=== PATIENT | female | born 1990 | race Caucasian/White ===

== ENCOUNTER 2023-01-09 12:12 | Outpatient (CLI) | payer MEDICAID ==
[2023-01-09 14:41] LABS: BASOPHILS % (AUTO) 0.6 %; EOSINOPHILS # (AUTO) 0.3 10^3/uL (0.0-0.7); EOSINOPHILS % (AUTO) 5.8 %; HCT - HEMATOCRIT 40.1 % (37.0-47.0); LYMPHOCYTES # (AUTO) 1.8 10^3/uL (1.5-3.5); LYMPHOCYTES % (AUTO) 36.5 %; MEAN CORPUSCULAR HEMOGLOBIN 30.1 pg (27.0-31.0); MEAN CORPUSCULAR HGB CONC 34.9 g/dL (32.0-36.0); MEAN CORPUSCULAR VOLUME 86.2 fL (81.0-99.0); MEAN PLATELET VOLUME 12.5 fL (7.9-10.8); MONOCYTES # (AUTO) 0.4 10^3/uL (0.0-1.0); MONOCYTES % (AUTO) 7.2 %; NEUTROPHILS # (AUTO) 2.4 10^3/uL (1.5-6.6); NEUTROPHILS % (AUTO) 49.5 %; PLT - PLATELET COUNT 161 10^3/uL (130-450); RED BLOOD COUNT 4.65 10^6/uL (4.20-5.40); RED CELL DISTRIBUTION WIDTH 12.7 % (12.0-15.0); WHITE BLOOD COUNT 4.9 x10^3/uL (4.8-10.8)
[2023-01-09 17:11] LABS: ALBUMIN 4.4 g/dL (3.2-5.5); ALBUMIN/GLOBULIN RATIO 1.8 (1.0-2.2); BILIRUBIN,TOTAL 0.7 mg/dL (0.2-1.0); CALCIUM 9.5 mg/dL (8.5-10.3); CREATININE 0.7 mg/dL (0.6-1.3); POTASSIUM 4.6 mmol/L (3.5-4.5); TOTAL PROTEIN 6.9 g/dL (6.4-8.9)
[2023-01-09 17:45] LABS: CREATININE,URINE 90.5 mg/dL; MICROALBUM/CREATININE RATIO,UR 27.6 ug/mg (<30.0); MICROALBUMIN,URINE 2.5 mg/dL
[2023-01-09 22:28] LABS: ESTIMATED AVERAGE GLUCOSE 283 mg/dL (70-100); HEMOGLOBIN A1c% 11.5 % (4.27-6.07)
== END 2023-01-09 12:13 | disposition home or self-care (01) ==
LOC: LAB.S 12:12
PROVIDERS: ATTEND Internal Medicine
DX: E11.65 Type 2 diabetes mellitus with hyperglycemia (principal); E78.5 Hyperlipidemia, unspecified
CPT/HCPCS: 36415; 80053; 82043; 82570; 83036; 85025

== ENCOUNTER 2023-02-03 05:58 | Emergency (ER) | payer MEDICAID ==
[2023-02-03] MEDS ORDERED: SODIUM CHLORIDE 0.9% 1,000 ML IV STA (06:18)
[2023-02-03] MEDS ORDERED: ONDANSETRON 4 MG/2 ML VIAL IVP STA (06:18)
--- NOTE | 2023-02-03 06:24 | ED Physician Documentation ---
PD HPI CHEST PAIN - Stated complaint Stated Complaint: CHEST PX/NAUSEA - Chief complaint Chief Complaint: Cardiac - History obtained from History obtained from: Patient - Additional information Additional information: Patient is a 32-year-old female with a history of diabetes, hyperlipidemia, anxiety presenting for evaluation of sharp midsternal chest pain radiating to the back that has been intermittent since 230 this morning. Patient states she woke up with the pain around 230 vomited some food she had had for dinner last night and went back to sleep. This occurred again around 330 and then again a short time later. She continues to have some pain. She does report that vomiting did seem to help initially with the pain. She reports when she went to bed last night she did feel like she was overfull. She denies associated shortness of air. No recent illness. No leg swelling or edema. No history of PE or DVT. No history of known coronary artery disease for the patient early CAD in the family. Denies concerns for . No abdominal pain. She reports that laying back makes the pain worse and sitting up makes it better. Review of Systems Constitutional: denies: Fever Cardiac: reports: Chest pain / pressure Respiratory: denies: Dyspnea, Cough GI: reports: Nausea, Vomiting. denies: Abdominal Pain, Diarrhea : denies: Dysuria PD PAST MEDICAL HISTORY - Past Medical History Past Medical History: Yes Cardiovascular: High cholesterol Endocrine/Autoimmune: Type 2 diabetes Psych: Depression, Anxiety - Past Surgical History Past Surgical History: Yes Ortho: Other HEENT: Other - Present Medications Home Medications: Ambulatory Orders Medication Instructions Recorded Confirmed Atorvastatin [Lipitor] 10 mg PO DAILY 02/03/23 02/03/23 Empagliflozin [Jardiance] 10 mg PO DAILY 02/03/23 02/03/23 Insulin NPH Human Isophane SUBQ 02/03/23 [Humulin N Kwikpen] Metformin HCl [Metformin ER 1,500 mg PO QPM 02/03/23 02/03/23 Osmotic] Sertraline HCl [Zoloft] 50 mg PO DAILY 02/03/23 02/03/23 - Allergies Allergies/Adverse Reactions: Allergies Allergy/AdvReac Type Severity Reaction Status Date / Time No Known Drug Allergies Allergy Verified 02/03/23 06:11 - Social History Does the pt smoke?: No Smoking Status: Never smoker Does the pt drink ETOH?: No Does the pt have substance abuse?: No - Immunizations Immunizations are current?: Yes - POLST Patient has POLST: No PD ED PE NORMAL - General General: Alert and oriented X 3, No acute distress, Well developed/nourished - HEENT HEENT: Atraumatic, Moist mucous membranes, Pharynx benign - Neck Neck: Supple, no meningeal sign - Cardiac Cardiac: RRR (Heart rate 90s to low 100s at times), Strong equal pulses - Respiratory Respiratory: No respiratory distress, Clear bilaterally - Abdomen Abdomen: Soft, Non tender, Non distended - Derm Derm: Warm and dry - Extremities Extremities: No edema, No calf tenderness / cord - Neuro Neuro: Normal speech Results - Vitals Vitals: Vital Signs - 24 hr 02/03/23 06:00 Temperature 36.5 C Heart Rate 108 H Respiratory 22 Rate Blood Pressure 151/96 H O2 Saturation 99 Oxygen O2 Source Room air - EKG (time done) 0609 EKG releavant findings:: EKG personally interpreted by author of this note. Relevant findings are: Rate 102, sinus tachycardia, no STEMI, small T wave inversions in lead III and flattened in aVF, V5 and V6, no priors for comparison - Labs Labs: Laboratory Tests 02/03/23 02/03/23 02/03/23 06:10 06:10 06:28 WBC 8.0 RBC 5.00 Hgb 15.1 Hct 44.9 MCV 89.8 MCH 30.2 MCHC 33.6 RDW 12.6 Plt Count 203 MPV 11.5 H Neut # (Auto) 4.6 Lymph # (Auto) 2.3 Catron # (Auto) 0.4 Eos # (Auto) 0.7 Baso # (Auto) 0.0 Absolute Nucleated RBC 0.00 Nucleated RBC % 0.0 D-Dimer 452.3 H Sodium 139 Potassium 3.8 Chloride 104 Carbon Dioxide 25 Anion Gap 10.0 BUN 14 Creatinine 0.7 Estimated GFR (MDRD) 96 Glucose 183 H Calcium 10.0 Total Bilirubin 0.5 AST 23 ALT 37 Alkaline Phosphatase 69 Troponin I High Sens 2.3 Total Protein 7.0 Albumin 5.0 Globulin 2.0 L Albumin/Globulin Ratio 2.5 H Lipase 25 PD Medical Decision Making - ED course Complexity details: reviewed results, re-evaluated patient, d/w patient, d/w family ED course: Patient is a 32-year-old female presenting for evaluation of chest pain with associated nausea starting this morning. Feels better when she sits up and worse when she lays down.Initially tachycardic which improved with some IV fluids. Otherwise vitals are stable. EKG reviewed without signs of acute ischemia. CBC, chemistry, troponin and D-dimer were obtained. Initial high- sensitivity troponin is negative. Patient still having some discomfort And willing to try GI cocktail. D-dimer elevated so CTA ordered. Also repeat troponin. Pt signed out to oncoming provider at shift change. Departure - Departure Forms: PCP List
[2023-02-03 06:28] LABS: BASOPHILS % (AUTO) 0.4 %; EOSINOPHILS # (AUTO) 0.7 10^3/uL (0.0-0.7); EOSINOPHILS % (AUTO) 8.2 %; HCT - HEMATOCRIT 44.9 % (37.0-47.0); HGB - HEMOGLOBIN 15.1 g/dL (12.0-16.0); LYMPHOCYTES # (AUTO) 2.3 10^3/uL (1.5-3.5); LYMPHOCYTES % (AUTO) 28.8 %; MEAN CORPUSCULAR HEMOGLOBIN 30.2 pg (27.0-31.0); MEAN CORPUSCULAR HGB CONC 33.6 g/dL (32.0-36.0); MEAN CORPUSCULAR VOLUME 89.8 fL (81.0-99.0); MEAN PLATELET VOLUME 11.5 fL (7.9-10.8); MONOCYTES # (AUTO) 0.4 10^3/uL (0.0-1.0); MONOCYTES % (AUTO) 5.1 %; NEUTROPHILS # (AUTO) 4.6 10^3/uL (1.5-6.6); NEUTROPHILS % (AUTO) 57.3 %; PLT - PLATELET COUNT 203 10^3/uL (130-450); RED CELL DISTRIBUTION WIDTH 12.6 % (12.0-15.0)
[2023-02-03 06:39] LABS: ALBUMIN/GLOBULIN RATIO 2.5 (1.0-2.2); BILIRUBIN,TOTAL 0.5 mg/dL (0.2-1.0); CREATININE 0.7 mg/dL (0.6-1.3); POTASSIUM 3.8 mmol/L (3.5-4.5)
[2023-02-03 06:45] LABS: TROPONIN I HIGH SENSITIVITY 2.3 ng/L (2.3-14.8)
[2023-02-03] MEDS ORDERED: MAG HYDROX/AL HYDROX/SIMETH 30 ML UDC PO STA (07:00)
[2023-02-03] MEDS ORDERED: LIDOCAINE VISCOUS 2% 15 ML ORAL SYRINGE MM STA (07:00)
[2023-02-03] MEDS ORDERED: LIDOCAINE VISCOUS 2% 15 ML UDC MM STA (07:02)
[2023-02-03 07:33] VITALS: O2SAT 100
--- NOTE | 2023-02-03 07:50 | XRAY Report ---
PROCEDURE: Chest 1 View X-Ray INDICATIONS: CP TECHNIQUE: One view of the chest was acquired. COMPARISON: None. FINDINGS: Surgical changes and devices: None. Lungs and pleura: No pleural effusions or pneumothorax. Lungs are clear. Mediastinum: Mediastinal contours appear normal. Heart size is normal. Bones and chest wall: No suspicious bony lesions. Overlying soft tissues appear unremarkable. IMPRESSION: No acute cardiopulmonary process. Reviewed by: Colin Hunter MD on 02/03/2023 7:48 AM [facility] Approved by: Colin Hunter MD on 02/03/2023 7:48 AM [facility] Station ID: [id number]
--- NOTE | 2023-02-03 08:46 | CT Report ---
PROCEDURE: ANGIO CHEST W/WO INDICATIONS: SOA/CP/abnormal ddimer CONTRAST: 80ml omni 300 TECHNIQUE: After the administration of intravenous contrast, 2 mm axial images were acquired from the pulmonary apices to the posterior costophrenic angles during the arterial phase. In addition, 1 mm lung kernel and 5 mm soft tissue kernel reconstructions were performed. 3-dimensional coronal oblique maximum int ensity projection (MIP) reformats, 8 mm axial MIP, and 5 mm coronal and sagittal MPR reformats were t hen performed through the thorax. For radiation dose reduction, the following was used: automated exp osure control, adjustment of mA and/or kV according to patient size. COMPARISON: None FINDINGS: Image quality: Excellent. Large vessels: No filling defects within the opacified pulmonary arteries, accounting for motion and contrast timing. No evidence of acute aortic syndrome or aortic aneurysm. Lungs and pleura: No consolidation. No pleural effusions. No pneumothorax. No suspicious pulmonary n odules which require follow up. Mediastinum: Heart size is normal. No pericardial effusion. No large vessel abnormality. No mediastin al adenopathy by size criteria. Chest wall and lower neck: Thyroid is unremarkable. No axillary or supraclavicular adenopathy by size . Bones: No aggressive osseous abnormality. Upper Abdomen: At least moderate diffuse hepatic steatosis, hepatomegaly. Splenomegaly as well. Splee n measures at least 15.7 cm. Question periportal varicosities. IMPRESSION: 1. No pulmonary emboli. 2. No acute pulmonary process. 3. Hepatomegaly, at least moderate diffuse hepatic steatosis. 4. Splenomegaly. 5. Question periportal varicosities. Reviewed by: Colin Hunter MD on 02/03/2023 8:44 AM PST Approved by: Colin Hunter MD on 02/03/2023 8:44 AM PST Station ID: [id number]
[2023-02-03] MEDS ORDERED: ACETAMINOPHEN 325 MG TABLET PO STA (09:13)
[2023-02-03] MEDS ORDERED: KETOROLAC 15 MG/ML VIAL IVP STA (09:13)
--- NOTE | 2023-02-03 09:22 | ED Physician Documentation ---
ED Addendum - Addendum Addendum: 02/03/23 09:18 The patient on change of shift was awaiting repeat troponin and a CT angio of the chest. These came back resulting showing no PEs. There was some fatty liver. There was a question of some periportal varices. She does not have any history of liver problems and is not a alcohol drinker. I informed her of the incidental findings. I do not believe follow-up is needed in particular at this time. She is not tender in the upper abdomen. No signs of gallbladder process released on the CT portion. She did not have any improvement with GI cocktail. There is still some mild pain in the chest. Just slightly with movement. Presume muscular. She had had some vomiting yesterday but not nauseous now. The CT would have shown any esophageal rupture or irritation. At this point we can discharge with presumed muscular pain. Disposition: The patient discharged home in stable condition. Diagnoses chest pain of uncertain etiology 2. Muscular chest pain
[2023-02-03 09:59] VITALS: BP 120/82
[2023-02-03] MEDS ORDERED: iohexoL-300 100 ML VIAL IVP ONE (17:08)
== END 2023-02-03 09:50 | disposition home or self-care (01) ==
LOC: ED 05:58
DX: R07.89 Other chest pain (principal); K76.0 Fatty (change of) liver, not elsewhere classified
CPT/HCPCS: 36415; 71045; 71275; 80053; 83690; 84484; 85025; 85379; 93005; 96361; 96374; 96375; 99283; 99284; A9270; Q9967

== ENCOUNTER 2023-03-01 11:42 | Outpatient (CLI) | payer MEDICAID ==
[2023-03-01 16:00] LABS: PT - PROTHROMBIN TIME 10.8 secs (9.9-12.6)
[2023-03-01 16:52] LABS: ALBUMIN 4.9 g/dL (3.2-5.5); ALBUMIN/GLOBULIN RATIO 1.7 (1.0-2.2); ALKALINE PHOSPHATASE 69 IU/L (42-121); ALT ALANINE AMINOTRANSFERASE 48 IU/L (10-60); AST ASPARTATE AMINOTRANSFERASE 29 IU/L (10-42); BILIRUBIN,DIRECT < 0.10 mg/dL (0.03-0.18); BILIRUBIN,TOTAL 0.5 mg/dL (0.2-1.0); BUN - BLOOD UREA NITROGEN 10 mg/dL (6-20); CARBON DIOXIDE - CO2 25 mmol/L (21-32); CHLORIDE 104 mmol/L (101-111); CREATININE 0.7 mg/dL (0.6-1.3); GFR - MDRD 96 (>89); GLUCOSE 257 mg/dL (74-104); SODIUM 139 mmol/L (135-145); TOTAL PROTEIN 7.8 g/dL (6.4-8.9)
[2023-03-01 17:33] LABS: CREATININE,URINE 54.1 mg/dL; MICROALBUM/CREATININE RATIO,UR 16.6 ug/mg (<30.0); MICROALBUMIN,URINE 0.9 mg/dL
[2023-03-01 20:37] LABS: ESTIMATED AVERAGE GLUCOSE 240 mg/dL (70-100)
[2023-03-02 03:09] LABS: HBsAG SCREEN Negative (Negative); HCV AB Non Reactive (Non Reactive); HEPATITIS B SURFACE AB QUANT >1000.0 mIU/mL (Immunity>9.9)
[2023-03-04 19:07] LABS: HCV IU/ML HCV Not Detected IU/mL (.)
== END 2023-03-01 11:43 | disposition home or self-care (01) ==
LOC: LAB.S 11:42
PROVIDERS: ATTEND Internal Medicine
DX: E11.65 Type 2 diabetes mellitus with hyperglycemia (principal); R79.1 Abnormal coagulation profile; R16.2 Hepatomegaly with splenomegaly, not elsewhere classified
CPT/HCPCS: 36415; 80053; 80076; 81241; 81599; 82043; 82248; 82570; 83036; 85300; 85307; 85379; 85610; 85730; 86317; 86341; 86704; 86803; 87340; 87522

== ENCOUNTER 2023-03-12 07:00 | Outpatient (CLI) | payer MEDICAID ==
--- NOTE | 2023-03-12 12:37 | Ultrasound Report ---
PROCEDURE: Abdomen Complete INDICATIONS: VARICES, STEATOSIS OF LIVER, SPLENOMEGALY TECHNIQUE: Real-time scanning was performed of the abdominal and retroperitoneal organs, with image documentatio n. COMPARISON: None. FINDINGS: Evaluation is limited secondary to bowel gas and body habitus. Liver: Liver is normal in size. The liver parenchyma is diffusely echogenic. Main portal vein is pat ent with hepatopedal flow. No sonographic evidence of a solid mass. Gallbladder: No stones or sludge. Normal wall thickness measuring 2.5 mm. No pericholecystic fluid or sonographic Madrigal's. Biliary ducts: Intrahepatic bile ducts are non-dilated. Extrahepatic bile duct caliber measures 4.8 mm. Normal is 6-7 mm or less in diameter, or 10 mm or less post-cholecystectomy. Pancreas: Not well seen secondary to bowel gas. Spleen: Spleen is mildly enlarged measuring 13.1 cm and homogeneous in echotexture. Kidneys: Kidneys are normal in size and echotexture. Right kidney measures 9.7 cm long; left kidney measures 9.7 cm long. No hydronephrosis or nephrolithiasis. No solid masses. No complex renal cyst ic lesions which require follow-up. Aorta: Visualized aorta is normal in caliber at less than 3 cm. Iliacs: Not well seen secondary to bowel gas. IVC: Intrahepatic inferior vena cava is patent. Miscellaneous: No free abdominal fluid. No visualized varices. IMPRESSION: Evaluation is limited secondary to bowel gas and body habitus. 1.Liver parenchyma is diffusely echogenic suggestive of parenchymal disease such as steatosis. 2.Mild splenomegaly measuring 13.1 cm. 3.No sonographic evidence of varices or free fluid. Reviewed by: Amy Armstrong MD on 03/12/2023 12:36 PM PST Approved by: Amy Armstrong MD on 03/12/2023 12:36 PM PST Station ID: [id number]
== END 2023-03-12 07:01 | disposition home or self-care (01) ==
LOC: DI 07:00
PROVIDERS: ATTEND Internal Medicine
DX: I86.8 Varicose veins of other specified sites (principal); K76.0 Fatty (change of) liver, not elsewhere classified; R16.1 Splenomegaly, not elsewhere classified

== ENCOUNTER 2023-04-11 09:58 | Outpatient (CLI) | payer MEDICAID ==
[2023-04-11 16:12] LABS: ABSOLUTE RETICS # AUTO 0.064 10^6/uL (0.020-0.110); RED BLOOD COUNT 4.71 10^6/uL (4.20-5.40); RETICULOCYTE COUNT % (AUTO) 1.36 % (0.5-2.3)
[2023-04-11 16:36] LABS: % IRON SATURATION 17 % (20-50); CHOL/HDL RATIO 3.8 (<4.4); CHOLESTEROL 133 mg/dL; HDL CHOLESTEROL 35 mg/dL; IRON 64 ug/dL (50-212); LDL CHOLESTEROL,CALCULATED 79 mg/dL; LDL/HDL RATIO 2.3 (<4.4); TOTAL IRON BINDING CAPACITY 382 ug/dL (250-450); TRANSFERRIN 273 mg/dL (203-362); TRIGLYCERIDES 97 mg/dL (48-352); VLDL CHOLESTEROL 19 mg/dL
[2023-04-11 16:49] LABS: FERRITIN 31.4 ng/mL (11.0-306.8)
--- NOTE | 2023-04-11 20:35 | XRAY Report ---
PROCEDURE: Hand 3+V LT INDICATIONS: FINGER DEFORMITY TECHNIQUE: 3 views of the hand(s) acquired. COMPARISON: None. FINDINGS: Bones: No fractures or dislocations. No suspicious bony lesions. Soft tissues: No suspicious soft tissue calcifications or masses. IMPRESSION: No acute bony abnormality. Reviewed by: Jameel Moise MD on 04/11/2023 8:33 PM PST Approved by: Jameel Moise MD on 04/11/2023 8:33 PM [facility] Station ID: [id number]
== END 2023-04-11 09:59 | disposition home or self-care (01) ==
LOC: DI.S 09:58
PROVIDERS: ATTEND Internal Medicine
DX: M20.009 Unspecified deformity of unspecified finger(s) (principal); E78.5 Hyperlipidemia, unspecified; Z83.2 Family history of diseases of the blood and blood-forming organs and certain disorders involving the immune mechanism; R79.1 Abnormal coagulation profile; R16.2 Hepatomegaly with splenomegaly, not elsewhere classified
CPT/HCPCS: 36415; 80061; 82728; 83540; 83721; 84466; 85045